=== PATIENT | male | born 1965 | race Caucasian/White ===

== ENCOUNTER 2018-08-22 11:43 | Emergency (ER) | payer SELFPAY ==
[2018-08-22] MEDS ORDERED: SODIUM CHLORIDE 0.9% 500 ML INFUS.BAG IV ONE (11:51)
[2018-08-22 11:52] VITALS: BMI 26.5
--- NOTE | 2018-08-22 11:59 | PDOC ---
History of Present Illness - General Stated Complaint: UNRESPONSIVE Time Seen by Provider: 08/22/18 11:47 History Source: Patient, Friend Exam Limitations: Unresponsive - History of Present Illness Initial Comments: 08/22/18 11:40 [id number] with vague h/o EtOH use disorder who presents unresponsive in a wheelchair , as brought in by his nephew. The nephew notes that the patient was initially responsive this morning, but he became unresponsive about 10 minutes before the nephew decided to take him to the ED in his truck. The nephew does not believe the patient was using EtOH this morning. The patient is unable to provide any additional history at the time of initial presentation. Past History - Past Medical History Allergies/Adverse Reactions: Allergies Allergy/AdvReac Type Severity Reaction Status Date / Time No Allergy Information Allergy Unverified 08/22/18 11:48 Available Review of Systems - Review of Systems Able to Perform ROS?: No (unresponsive) *Physical Exam - Vital Signs 08/22/18 12:34 Initial Vital Signs Temp Pulse Resp BP Pulse Ox 99.2 F 92 H 18 149/90 98 08/22/18 11:49 08/22/18 11:49 08/22/18 11:49 08/22/18 11:49 08/22/18 11:49 GENERAL: obtunded, unable to answer questions, no response to verbal stimuli or to pain (sternal rub, nailbed pressure, Mattson placement, or PIV placement) HEENT: PERRLA, EOMI, moist mucous membranes, wandering eye movements without lateral gaze deviation NECK/BACK: no spinal stepoff or deformity, no hematoma, neck supple CARDIOVASCULAR: regular rate/rhythm, normal S1S2, no MGR, capillary refill <2 seconds, extremities wwp, no edema LUNGS/RESPIRATORY: nononlabored respirations, lungs CTAB GI/ABDOMEN: symmetric [id number], normoactive BS, soft, no midline pulsatile masses, no organomegaly : normal external appearance, uncircumcised, no lesions, no swelling, non- malodorous EXTREMITIES: no muscle atrophy, no acute deformity, no edema SKIN: warm and dry, no pallor, no rash, no bruising, no skin breakdown, no cuts NEUROLOGICAL: patient is unable to participate in exam ED Treatment Course - LABORATORY CBC & Chemistry Diagram: 08/22/18 12:00 08/22/18 12:04 Medical Decision Making - Medical Decision Making Patient with h/o EtOH use disorder presents unresponsive. Initial Vital Signs Temp Pulse Resp BP Pulse Ox 99.2 F 92 H 18 149/90 98 08/22/18 11:49 08/22/18 11:49 08/22/18 11:49 08/22/18 11:49 08/22/18 11:49 Exam: as noted in Physical Exam Section. DDX: structural (e.g. epilepsy, brain tumor, CVA/TIA, NPH, CJD, ACS, PE, Reece disease), infectious (e.g. UTI, PNA, bronchitis, cellulitis, meningitis, neurosyphilis, HIV-associated dementia), VS abnormalities (e.g. fever, hypertensive emergency), toxic-metabolic (e.g. medications, drugs e.g. serotonin syndrome/neuroleptic malignant syndrome or street drugs, electrolytes , hypothyroid, B12 deficiency), psychiatric (e.g. delirium, dementia, psychosis) , TTP (HUS with AMS, fever, poss seizure), etc. W/U ordered: Labs as noted below, EKG CXR HCT WO contrast TX ordered: IVF EKG: Reviewed; results as noted in ECG Review section. CXR: Head CT: Labs: Reassessment: Repeat VS: 08/22/18 13:52 I called again to speak with [facility]. I was connected with a male attending who stated that this call had been received already a couple of hours ago. I explained to him that we have a new birthdate for the patient who is finally able to give us information as he is conscious. He attempts to transfer me to food science technician desk, states he does not have time for this. He is unable to transfer, I ask him if he can tell me whether or not the patient was diagnosed with endocarditis yesterday. He states that I should call back in an hour when the food science technician is back from break. He states he does not have time for this and hangs up the phone. I call back to main [facility]'s number and ask to be transferred to the ED again. I speak with a town clerk who states the food science technician is on break. I ask for anyone in the ED who can help me and town clerk states there is nobody and they are busy. I explain we need to know whether this patient has endocarditis as he is critical. She states there is nobody that can help me. 08/22/18 14:00 Initiating transfer to [facility]. I have ordered Keppra 1 gm and Decadron 10 mg. 08/22/18 14:10 The Pt is unsafe for discharge at this time. They require further hospital observation, workup, and treatment. Dr. Terrell speaking with [facility] neurosurgeon; accepted in xfer to Dr. Bone, ED to ED transfer. Patient consents to xfer and transfer paperwork completed and signed. EMS crew arrives and transfers Pt to ambulance without issue. *DC/Admit/Observation/Transfer Diagnosis at time of Disposition: Altered level of consciousness ICH (intracerebral hemorrhage) Qualifiers: Intracerebral hemorrhage etiology: nontraumatic Cerebral hemorrhage location: unspecified cerebral location Laterality: right Qualified Code(s): I61.9 - Nontraumatic intracerebral hemorrhage, unspecified - Discharge Dispostion Disposition: TRANSFER ACUTE CARE/OTHER HOSP Condition at time of disposition: Guarded - Referrals - Patient Instructions - Post Discharge Activity - Transfer to Acute Care Facility Receiving Facility: [facility] Transfer comment: Neurosurgery service
--- NOTE | 2018-08-22 12:08 | PDOC ---
Attending Attestation - Resident Resident Name: Denise Swanson - ED Attending Attestation I have performed the following: I have examined & evaluated the patient, The case was reviewed & discussed with the resident, I agree w/resident's findings & plan, Exceptions are as noted - HPI HPI: 08/22/18 11:56 64 M with unknown PMH presents to ED unresponsive. Per friend, pt drinks heavily. Friend found him awake and alert, walking around his apartment prior to coming to ED. Friend suspects pt was drinking this AM and decided to bring pt to ED in his car. Upon arrival to ED, pt was unresponsive. Pt exhibited ? seizure-like activity that spontaneously terminated. Pt subsequently very somnolent. After approx 15 minutes, pt awoke. Able to tell us that he was seen at [facility] recently and had "inflammation of his heart". Denies h/o seizures. Denies any fevers recently. States he is currently taking antibiotics. - Physicial Exam PE: 08/22/18 12:08 GENERAL: Unresponsive, smells of ETOH HEAD: No signs of trauma EYES: Roving eye movements, PERRLA, EOMI, sclera anicteric, conjunctiva clear ENT: Auricles normal inspection, hearing grossly normal, nares patent, oropharynx clear without exudates. Moist mucosa NECK: Nontender, no stepoffs, Normal ROM, supple, no lymphadenopathy, JVD, or masses LUNGS: Breath sounds equal, clear to auscultation bilaterally. No wheezes, and no crackles HEART: Regular rate and rhythm, normal S1 and S2, no murmurs, rubs or gallops ABDOMEN: Soft, nontender, normoactive bowel sounds. No guarding, no rebound. No masses EXTREMITIES: Normal range of motion, no edema. No clubbing or cyanosis. No cords, erythema, or tenderness NEUROLOGICAL: withdraws to painful stimuli SKIN: Warm, Dry, normal turgor, no rashes or lesions noted. - Critical Care Time Total Critical Care Time: 60 Critical Care Statement: The care of this patient involved high complexity decision making to prevent further life threatening deterioration of the patient 's condition and/or to evaluate & treat vital organ system(s) failure or risk of failure. - Medical Decision Making 08/22/18 12:13 64 M presenting to ED unresponsive. Pt with no signs of trauma. Possible intox, as pt smells of ETOH. However, sudden return to baseline mental status suspicious for possible seizure. - Labs - Head CT - IVF - reassess 08/22/18 13:47 CT head shows calcification with possible surrounding edema. Possible old hemorrhage. However, cannot rule out subacute bleed. In the context of possibe seizure, will need emergent nsgy eval. Will initiate txfer.
[2018-08-22 12:15] LABS: BASO % 0.8 % (0-2.0); EOS % 2.4 % (0-4.5); HEMATOCRIT 45.1 % (35.4-49); HEMOGLOBIN 14.8 GM/dL (11.7-16.9); LYMPH % 46.7 % (8-40); MCH 32.2 pg (25.7-33.7); MCHC 32.7 g/dl (32.0-35.9); MEAN CELL VOLUME 98.4 fl (80-96); MEAN PLT VOLUME 7.4 fl (7.5-11.1); MONO % 9.4 % (3.8-10.2); NEUT % 40.7 % (42.8-82.8); PLATELET COUNT 210 K/MM3 (134-434); RBC 4.59 M/mm3 (4.00-5.60); RDW 14.1 % (11.9-15.9); WHITE BLOOD COUNT 6.2 K/mm3 (4.0-10.0)
[2018-08-22 12:28] LABS: COCAINE, UR NEGATIVE ng/ml (CUTOFF=300); METHADONE, UR NEGATIVE ng/ml (CUTOFF=300); OPIATES, URI NEGATIVE ng/ml (CUTOFF=300); PHENCYCLIDINE,URINE NEGATIVE ng/ml (CUTOFF=25); URINE AMPHETAMINES NEGATIVE ng/ml (CUTOFF=500); URINE BARBITURATES NEGATIVE ng/ml (CUTOFF=200); URINE BENZODIAZEPINES NEGATIVE ng/ml (CUTOFF=200)
[2018-08-22 12:57] LABS: ALK PHOS 104 U/L (45-117); ANION GAP 8 MMOL/L (8-16); BILIRUBIN,TOTAL 0.3 mg/dL (0.2-1); BLOOD UREA NITROGEN 8 mg/dL (7-18); CALCIUM 7.9 mg/dL (8.5-10.1); CHLORIDE 104 mmol/L (98-107); CO2 28 mmol/L (21-32); CREATININE 0.7 mg/dL (0.55-1.3); GLUCOSE,RANDOM 99 mg/dL (74-106); POTASSIUM 4.1 mmol/L (3.5-5.1); SGOT/AST 53 U/L (15-37); SGPT/ALT 54 U/L (13-61); SODIUM 140 mmol/L (136-145); TOT PROT 7.4 g/dl (6.4-8.2)
[2018-08-22 13:09] LABS: URINE APPEARANCE CLEAR; URINE BILIRUBIN NEGATIVE (<2.0 mg/dL); URINE COLOR STRAW; URINE GLUCOSE (UA) NEGATIVE (NEGATIVE); URINE KETONE NEGATIVE (NEGATIVE); URINE LEUK ESTERASE NEGATIVE (NEGATIVE); URINE NITRITE NEGATIVE (NEGATIVE); URINE PROTEIN NEGATIVE (NEGATIVE); URINE UROBILINOGEN NEGATIVE mg/dL (0.2-1.0)
[2018-08-22] MEDS ORDERED: levETIRAcetam 500 MG/5 ML INJECTION VIAL IVPB ONE ×2 (13:58→14:05)
[2018-08-22] MEDS ORDERED: DEXAMETHASONE SOD PHOSPHATE 10 MG/1 ML VIAL IVPUSH ONE (13:58)
[2018-08-22] MEDS ORDERED: DEXAMETHASONE SOD PHOSPHATE 4 MG/1 ML VIAL ONE (14:05)
[2018-08-22 15:49] VITALS: BP 136/86; PULSE 76; TEMP 98.1
--- NOTE | 2018-08-23 07:16 | EKG ---
Test Reason : Blood Pressure : / mmHG Vent. Rate : 089 BPM Atrial Rate : 089 BPM P-R Int : 154 ms QRS Dur : 120 ms QT Int : 384 ms P-R-T Axes : 061 -33 041 degrees QTc Int : 467 ms NORMAL SINUS RHYTHM LEFT AXIS DEVIATION NON-SPECIFIC INTRA-VENTRICULAR CONDUCTION DELAY ABNORMAL ECG NO PREVIOUS ECGS AVAILABLE Confirmed by CLAUDIA DELUCA MD ([id number]) on 08/23/2018 7:15:39 AM Referred By: Confirmed By:CLAUDIA DELUCA MD
== END 2018-08-22 15:15 | disposition short-term general hospital (02) ==
LOC: JER 11:43
PROC: 3E033GC Introduction of Other Therapeutic Substance into Peripheral Vein, Percutaneous Approach (ICD-10-PCS; principal; 2018-08-22)
PROC: 3E033NZ Introduction of Analgesics, Hypnotics, Sedatives into Peripheral Vein, Percutaneous Approach (ICD-10-PCS; 2018-08-22)
DX: I63.9 Cerebral infarction, unspecified (principal); F10.10 Alcohol abuse, uncomplicated
CPT/HCPCS: 36415; 70450-TC; 71045-TC-FY; 80053; 80307; 81003; 82550; 84443; 84484; 85025; 87086; 93005; 93010; 99285-25; J1100

== ENCOUNTER 2018-09-21 17:59 | Emergency (ER) | payer SELFPAY ==
--- NOTE | 2018-09-21 18:15 | PDOC ---
Rapid Medical Evaluation Chief Complaint: Chest Pain Time Seen by Provider: 09/21/18 18:13 Medical Evaluation: Allergies Allergy/AdvReac Type Severity Reaction Status Date / Time No Allergy Information Allergy Unverified 08/22/18 11:48 Available 09/21/18 18:14 I have performed a brief in person evaluation of this patient. The patient's CC: CP HPI: Pt is a 52 YO male who complains of SOB and CP PE: Skin: Clear Heart: RRR Lungs: Clear MS. pain upon palpation to the lumbar spine Neuro: Alert and oriented Psch: appropriate affect CV protocol initiated. The patient will proceed to main ED for further evaluation. Discharge Disposition - Diagnosis Chest pain Qualifiers: Chest pain type: chest pain on breathing Qualified Code(s): R07.1 - Chest pain on breathing; R07.81 - Pleurodynia - Referrals - Patient Instructions - Post Discharge Activity
[2018-09-21 18:17] VITALS: BP 129/75; PULSE 93; TEMP 97.9; BMI 29.2
[2018-09-21 18:45] LABS: BASO % 1.1 % (0-2.0); EOS % 2.7 % (0-4.5); HEMATOCRIT 50.5 % (35.4-49); HEMOGLOBIN 17.3 GM/dL (11.7-16.9); LYMPH % 43.1 % (8-40); MCH 33.4 pg (25.7-33.7); MCHC 34.2 g/dl (32.0-35.9); MEAN CELL VOLUME 97.7 fl (80-96); MEAN PLT VOLUME 7.4 fl (7.5-11.1); MONO % 7.1 % (3.8-10.2); PLATELET COUNT 250 K/MM3 (134-434); RBC 5.17 M/mm3 (4.00-5.60); RDW 13.7 % (11.9-15.9); WHITE BLOOD COUNT 6.9 K/mm3 (4.0-10.0)
[2018-09-21 18:57] LABS: INR 0.87 (0.83-1.09); PROTHROMBIN TIME (PATIENT) 10.3 SEC (9.7-13.0)
[2018-09-21 19:09] LABS: ALBUMIN 4.6 g/dl (3.4-5.0); ALK PHOS 116 U/L (45-117); ANION GAP 13 MMOL/L (8-16); BILIRUBIN,TOTAL 0.3 mg/dL (0.2-1); BLOOD UREA NITROGEN 7 mg/dL (7-18); CALCIUM 8.7 mg/dL (8.5-10.1); CHLORIDE 104 mmol/L (98-107); CO2 27 mmol/L (21-32); CREATININE 0.7 mg/dL (0.55-1.3); GLUCOSE,RANDOM 92 mg/dL (74-106); MAGNESIUM 2.5 mg/dL (1.8-2.4); POTASSIUM 4.3 mmol/L (3.5-5.1); SGOT/AST 46 U/L (15-37); SGPT/ALT 44 U/L (13-61); SODIUM 144 mmol/L (136-145); TOT PROT 8.2 g/dl (6.4-8.2)
--- NOTE | 2018-09-21 21:16 | PDOC ---
History of Present Illness - General Chief Complaint: Chest Pain Stated Complaint: CHEST PAIN Time Seen by Provider: 09/21/18 18:13 History Source: Patient - History of Present Illness Presenting Symptoms: Chest Pain Past History - Past Medical History Allergies/Adverse Reactions: Allergies Allergy/AdvReac Type Severity Reaction Status Date / Time No Allergy Information Allergy Verified 09/21/18 18:14 Available Home Medications: Ambulatory Orders Unobtainable 08/22/18 COPD: No - Immunization History Immunization Up to Date: Yes - Suicide/Smoking/Psychosocial Hx Smoking History: Never smoked Hx Alcohol Use: No Drug/Substance Use Hx: No Review of Systems - Review of Systems Constitutional: No: Chills, Fever Respiratory: Yes: Shortness of Breath Cardiac (ROS): Yes: Chest Pain. No: Lightheadedness, Palpitations, Syncope *Physical Exam - Vital Signs Last Vital Signs Temp Pulse Resp BP Pulse Ox 97.9 F 93 H 17 129/75 97 09/21/18 18:14 09/21/18 18:14 09/21/18 18:14 09/21/18 18:14 09/21/18 18:14 - Physical Exam General Appearance: Yes: Appropriately Dressed. No: Apparent Distress HEENT: positive: Normal Voice Neck: positive: Supple Respiratory/Chest: positive: Lungs Clear, Normal Breath Sounds. negative: Respiratory Distress Cardiovascular: positive: Regular Rate, S1, S2 Gastrointestinal/Abdominal: positive: Soft. negative: Tender, Pulsatile Mass Extremity: negative: Pedal Edema Integumentary: positive: Dry, Warm Neurologic: positive: Fully Oriented, Alert, Normal Mood/Affect Heart Score/ECG Review - History History: Slightly suspicious - Electrocardiogram EKG: Normal - Age Age: 45-65 - Risk Factors Based on the list above the patient has:: No risk factors known - Troponin Troponin: </= normal limit - Score Heart Score - Total: 1 Moderate Sedation - Procedure Monitoring Vital Signs: Procedure Monitoring Vital Signs Temperature 97.9 F 09/21/18 18:14 Pulse Rate 93 H 09/21/18 18:14 Respiratory Rate 17 09/21/18 18:14 Blood Pressure 129/75 09/21/18 18:14 O2 Sat by Pulse Oximetry (%) 97 09/21/18 18:14 ED Treatment Course - LABORATORY CBC & Chemistry Diagram: 09/21/18 18:22 09/21/18 18:22 - ADDITIONAL ORDERS Additional order review: Laboratory Results 09/21/18 09/21/18 18:22 18:22 PT with INR 10.30 INR 0.87 Sodium 144 Potassium 4.3 Chloride 104 Carbon Dioxide 27 Anion Gap 13 BUN 7 Creatinine 0.7 Creat Clearance w eGFR > 60 Random Glucose 92 Calcium 8.7 Magnesium 2.5 H Total Bilirubin 0.3 AST 46 H ALT 44 Alkaline Phosphatase 116 Creatine Kinase 180 Creatine Kinase Index 0.5 CK-MB (CK-2) < 1.0 Troponin I < 0.02 Total Protein 8.2 Albumin 4.6 09/21/18 18:22 RBC 5.17 MCV 97.7 H MCHC 34.2 RDW 13.7 MPV 7.4 L Neutrophils % 46.0 Lymphocytes % 43.1 H Monocytes % 7.1 Eosinophils % 2.7 Basophils % 1.1 Medical Decision Making - Medical Decision Making 09/21/18 21:02 52 yo M, possible ETOH abuse, p/w CP. Pt reports L sided, non-radiating, CP since this am, constant w/ no exacerbating/alleviating factors. No SOB, diaphoresis, n/v, palpitations, leg pain or swelling. Pt denies cardiac w/u in past. Of note, pt s/p admission at [facility] 08/22/2018 for subacute hemorrhage in the setting of fall while intoxicated. Pt was transferred out. See exam CP R/o ACS, less likely dissection or PE, no infectious sxs -asa -ekg -cxr -labs -dispo pending 09/21/18 21:51 EKG unremarkable. Initial troponin negative. Per discussion with ED attending , given low heart score, will get 3 hour troponin and dc if negative 09/21/18 21:57 Pt signed out to PAUL Zaman at this time *DC/Admit/Observation/Transfer Diagnosis at time of Disposition: Chest pain Qualifiers: Chest pain type: chest pain on breathing Qualified Code(s): R07.1 - Chest pain on breathing - Referrals - Patient Instructions Printed Discharge Instructions: DI for Atypical Chest Pain - Post Discharge Activity
[2018-09-21] MEDS ORDERED: ASPIRIN 325 MG ENTERIC COATED TABLET (FP) PO ONE (21:18)
[2018-09-21] MEDS ORDERED: ASPIRIN 325 MG TABLET ONE (22:01)
--- NOTE | 2018-09-21 22:56 | PDOC ---
*Physical Exam - Vital Signs Last Vital Signs Temp Pulse Resp BP Pulse Ox 97.9 F 93 H 17 129/75 97 09/21/18 18:14 09/21/18 18:14 09/21/18 18:14 09/21/18 18:14 09/21/18 18:14 ED Treatment Course - LABORATORY CBC & Chemistry Diagram: 09/21/18 18:22 09/21/18 18:22 - ADDITIONAL ORDERS Additional order review: Laboratory Results 09/21/18 09/21/18 09/21/18 21:48 18:22 18:22 PT with INR 10.30 INR 0.87 Sodium 144 Potassium 4.3 Chloride 104 Carbon Dioxide 27 Anion Gap 13 BUN 7 Creatinine 0.7 Creat Clearance w eGFR > 60 Random Glucose 92 Calcium 8.7 Magnesium 2.5 H Total Bilirubin 0.3 AST 46 H ALT 44 Alkaline Phosphatase 116 Creatine Kinase 180 Creatine Kinase Index 0.5 CK-MB (CK-2) < 1.0 Troponin I < 0.02 < 0.02 Total Protein 8.2 Albumin 4.6 09/21/18 18:22 RBC 5.17 MCV 97.7 H MCHC 34.2 RDW 13.7 MPV 7.4 L Neutrophils % 46.0 Lymphocytes % 43.1 H Monocytes % 7.1 Eosinophils % 2.7 Basophils % 1.1 - Medications Given in the ED: ED Medications Discontinued Medications Generic Name Dose Route Start Last Admin Trade Name Tiffani PRN Reason Stop Dose Admin Aspirin 325 mg 09/21/18 21:18 09/21/18 22:18 Ecotrin - PO 09/21/18 21:19 325 mg ONCE ONE Administration *DC/Admit/Observation/Transfer Diagnosis at time of Disposition: Chest pain Qualifiers: Chest pain type: chest pain on breathing Qualified Code(s): R07.1 - Chest pain on breathing - Discharge Dispostion Disposition: HOME - Referrals - Patient Instructions Printed Discharge Instructions: DI for Atypical Chest Pain Additional Instructions: please follow up with a weatherization coordinator as soon as possible. you will be contacted for an appointment in the clinic. Additional Instructions: * Please call your personal physician to report your Emergency Department visit and to report your progress, if any. * If there is no improvement in symptoms in 2 days call your physician. * Return to the Emergency Department for any worsening symptoms. - Post Discharge Activity
--- NOTE | 2018-09-22 12:04 | EKG ---
Test Reason : Blood Pressure : / mmHG Vent. Rate : 088 BPM Atrial Rate : 088 BPM P-R Int : 160 ms QRS Dur : 114 ms QT Int : 374 ms P-R-T Axes : 073 -52 -05 degrees QTc Int : 452 ms NORMAL SINUS RHYTHM POSSIBLE LEFT ATRIAL ENLARGEMENT LEFT ANTERIOR FASCICULAR BLOCK ABNORMAL ECG WHEN COMPARED WITH ECG OF 22-AUG-2018 11:49, INVERTED T WAVES HAVE REPLACED NONSPECIFIC T WAVE ABNORMALITY IN INFERIOR LEADS Confirmed by DENNYS CARCAMO MD ([id number]) on 09/22/2018 12:03:42 PM Referred By: Confirmed By:DENNYS CARCAMO MD
== END 2018-09-21 23:16 | disposition home or self-care (01) ==
LOC: JER 17:59
DX: R07.9 Chest pain, unspecified (principal)
CPT/HCPCS: 36415; 71046-TC-FY; 80053; 82550; 82553; 83735; 84484; 85025; 85610; 93005; 93010; 99283-25